=== PATIENT | female | born 1980 | race Caucasian/White ===

== ENCOUNTER 2018-05-28 13:30 | Emergency (ER) | payer BC ==
--- NOTE | 2018-05-28 13:32 | ER Report ---
History and Physical Time Seen By MD: 13:31 HPI/ROS CHIEF COMPLAINT: Fall, headache HISTORY OF PRESENT ILLNESS: Patient is a 37-year-old female here with complaints of headache, status post fall while getting off of the ski lift while snowboarding. Patient was helmeted and reportedly fell backwards striking her head on the ground. Patient reports a mildly cloudy sensorium, decreased short- term memory, headache, fuzzy feeling and likely loss of consciousness. Patient denies neck pain, shortness breath, chest pain, abdominal pain, nausea, vomiting. There are no focal neurological deficits at time of evaluation. REVIEW OF SYSTEMS: Constitutional: No fever, no chills. Eyes: No discharge. ENT: No sore throat. Cardiovascular: No chest pain, no palpitations. Respiratory: No cough, no shortness of breath. Gastrointestinal: No abdominal pain, no vomiting. Genitourinary: No hematuria. Musculoskeletal: No back pain. Skin: No rashes. Neurological: + headache, decreased short term memory, cloudy sensorium, no focal deficits. Allergies: Coded Allergies: Penicillins (Verified Allergy, Mild, RASH, 05/28/18) Sulfa (Sulfonamide Antibiotics) (Verified Allergy, Mild, RASH, 05/28/18) Home Meds Active Scripts Ondansetron 4 Mg Odt (ONDANSETRON 4 MG ODT) 4 Mg Tab.rapdis, 4 MG PO Q12H, #30 TAB Prov:CRUZ RODRIGUEZ DO 05/28/18 Reported Medications [Thyroid Med] No Conflict Check, PO DAILY 05/28/18 Constitutional Physical Exam General Appearance: The patient is alert, has no immediate need for airway protection and no signs of toxicity. No acute distress Eyes: Pupils equal and round no pallor or injection. ENT, Mouth: Mucous membranes are moist. Respiratory: There are no retractions, lungs are clear to auscultation. Cardiovascular: Regular rate and rhythm. Gastrointestinal: Abdomen is soft and non tender, no masses, bowel sounds normal. Neurological: No focal neurological deficits, intact sensorium, Skin: Warm and dry, no rashes. Musculoskeletal: Neck is supple non tender. Extremities are nontender, nonswollen and have full range of motion. DIFFERENTIAL DIAGNOSIS: After history and physical exam differential diagnosis was considered for concussion, contusion, intracranial bleed, skull fracture, neck fracture Medical Decision Making EKG/Imaging Imaging EXAMINATION: CT Head without intravenous contrast CT Cervical spine without intravenous contrast HISTORY: Trauma. TECHNIQUE: Head: Axial images were obtained from the skull base to the vertex without intravenous contrast. Sagittal and coronal reformatted images are also submitted. Cervical spine: Axial images were obtained from the skull base through the upper thoracic spine without IV contrast administration. Coronal and sagittal reformatted images were obtained from the axial source data. One of the following dose optimization techniques was utilized in the performance of this exam: Automated exposure control; adjustment of the mA and/or kV according to the patient's size; or use of an iterative reconstruction technique. Specific details can be referenced in the facility's radiology CT exam operational policy. COMPARISON: None available. FINDINGS: HEAD: Brain volume: Normal. Ventricles: Negative. Acute ischemic changes: None. Hemorrhage: None. Masses / edema: None. Quach-white: Negative. White matter: Negative. Vessels: Negative. Extra-axial: Negative. Calvarium / skull base: Mild right TMJ arthritis. Visualized sinuses / orbits: Negative. CERVICAL SPINE: Alignment: Reversal of the normal lordosis. Mild convex rightward curvature. Cranio-cervical junction: Negative. Vertebral bodies: Negative. Posterior elements: Negative. Hardware: None. Disc Spaces: Negative. Soft tissues: Negative. Visualized upper chest: Negative. IMPRESSION: 1. No acute intracranial abnormality. 2. No acute cervical spine fracture. EXAMINATION: CT Head without intravenous contrast CT Cervical spine without intravenous contrast HISTORY: Trauma. TECHNIQUE: Head: Axial images were obtained from the skull base to the vertex without intravenous contrast. Sagittal and coronal reformatted images are also submitted. Cervical spine: Axial images were obtained from the skull base through the upper thoracic spine without IV contrast administration. Coronal and sagittal reformatted images were obtained from the axial source data. One of the following dose optimization techniques was utilized in the performance of this exam: Automated exposure control; adjustment of the mA and/or kV according to the patient's size; or use of an iterative reconstruction technique. Specific details can be referenced in the facility's radiology CT exam operational policy. COMPARISON: None available. FINDINGS: HEAD: Brain volume: Normal. Ventricles: Negative. Acute ischemic changes: None. Hemorrhage: None. Masses / edema: None. Quach-white: Negative. White matter: Negative. Vessels: Negative. Extra-axial: Negative. Calvarium / skull base: Mild right TMJ arthritis. Visualized sinuses / orbits: Negative. CERVICAL SPINE: Alignment: Reversal of the normal lordosis. Mild convex rightward curvature. Cranio-cervical junction: Negative. Vertebral bodies: Negative. Posterior elements: Negative. Hardware: None. Disc Spaces: Negative. Soft tissues: Negative. Visualized upper chest: Negative. IMPRESSION: 1. No acute intracranial abnormality. 2. No acute cervical spine fracture. ED Course/Re-evaluation ED Course Patient is a 37-year-old female here with complaints of headache, mild cloudy sensorium after a fall while snowboarding today. CT imaging of the head and C- spine were negative for intracranial pathology or fractures. Patient received ibuprofen and Zofran for symptom management. Patient likely has a concussion secondary to trauma at which time she was wearing a helmet. Concussion precautions were provided the patient and she voiced understanding. Patient was discharged in stable condition tolerating by mouth intake Decision to Disposition Date: May 28, 2018 Decision to Disposition Time: 15:30 Depart Departure Latest Vital Signs Impression: Primary Impression: Concussion Condition: Condition Unchanged Disposition: HOME OR SELF-CARE New Scripts Ondansetron 4 Mg Odt (ONDANSETRON 4 MG ODT) 4 Mg Tab.rapdis 4 MG PO Q12H, #30 TAB Prov: CRUZ RODRIGUEZ DO 05/28/18 Patient Instructions: Concussion (ED) Additional Instructions: Please drink plenty of water. You may take 1 tablet of Zofran every 4-6 hours as needed for nausea and vomiting. You may take Tylenol not to exceed 3 g per day, ibuprofen not to exceed 800 mg 4 times a day, naproxen not to exceed 500 mg twice daily as needed for headaches. Please limit exposure to phones, electronic devices, reading, TV as this may hinder your recovery. Please return promptly if you develop weakness in the extremities, numbness, neck pain, worsening headache, blurry vision, difficulty breathing, fevers or chills, inability to keep down food or fluids. Please follow-up with her family doctor in the next 24-48 hours for follow-up evaluation and care. Please avoid any activity that may cause repeat trauma as recurrent trauma can significantly worsen your symptoms or cause . CRUZ RODRIGUEZ DO May 28, 2018 13:32
[2018-05-28] MEDS ORDERED: THYROID MED PO (13:45)
--- NOTE | 2018-05-28 15:11 | RADIOLOGY IMAGING REPORT ---
FACILITY: [facility] PATIENT NAME: Sweetie Rondon : 1980 MR: [id number] V: [id number] EXAM DATE: ORDERING PHYSICIAN: CRUZ RODRIGUEZ TECHNOLOGIST: Location: [facility] - [place] Patient: Sweetie Rondon : 1980 Visit/Account:[id number] Date of Sevice: 05/28/2018 EXAMINATION: CT Head without intravenous contrast CT Cervical spine without intravenous contrast HISTORY: Trauma. TECHNIQUE: Head: Axial images were obtained from the skull base to the vertex without intravenous contrast. Sa gittal and coronal reformatted images are also submitted. Cervical spine: Axial images were obtained from the skull base through the upper thoracic spine with out IV contrast administration. Coronal and sagittal reformatted images were obtained from the axial source data. One of the following dose optimization techniques was utilized in the performance of this exam: Autom ated exposure control; adjustment of the mA and/or kV according to the patient's size; or use of an i terative reconstruction technique. Specific details can be referenced in the facility's radiology C T exam operational policy. COMPARISON: None available. FINDINGS: HEAD: Brain volume: Normal. Ventricles: Negative. Acute ischemic changes: None. Hemorrhage: None. Masses / edema: None. Quach-white: Negative. White matter: Negative. Vessels: Negative. Extra-axial: Negative. Calvarium / skull base: Mild right TMJ arthritis. Visualized sinuses / orbits: Negative. CERVICAL SPINE: Alignment: Reversal of the normal lordosis. Mild convex rightward curvature. Cranio-cervical junction: Negative. Vertebral bodies: Negative. Posterior elements: Negative. Hardware: None. Disc Spaces: Negative. Soft tissues: Negative. Visualized upper chest: Negative. IMPRESSION: 1. No acute intracranial abnormality. 2. No acute cervical spine fracture. Report Dictated By: Blake Vera MD at 05/28/2018 3:00 PM Report E-Signed By: Blake Vera MD at 05/28/2018 3:07 PM WSN:[email or web address]
--- NOTE | 2018-05-28 15:11 | RADIOLOGY IMAGING REPORT ---
FACILITY: [facility] PATIENT NAME: Sweetie Rondon : 1980 MR: [id number] V: [id number] EXAM DATE: ORDERING PHYSICIAN: CRUZ RODRIGUEZ TECHNOLOGIST: Location: [facility] - [place] Patient: Sweetie Rondon : 1980 Visit/Account:[id number] Date of Sevice: 05/28/2018 EXAMINATION: CT Head without intravenous contrast CT Cervical spine without intravenous contrast HISTORY: Trauma. TECHNIQUE: Head: Axial images were obtained from the skull base to the vertex without intravenous contrast. Sa gittal and coronal reformatted images are also submitted. Cervical spine: Axial images were obtained from the skull base through the upper thoracic spine with out IV contrast administration. Coronal and sagittal reformatted images were obtained from the axial source data. One of the following dose optimization techniques was utilized in the performance of this exam: Autom ated exposure control; adjustment of the mA and/or kV according to the patient's size; or use of an i terative reconstruction technique. Specific details can be referenced in the facility's radiology C T exam operational policy. COMPARISON: None available. FINDINGS: HEAD: Brain volume: Normal. Ventricles: Negative. Acute ischemic changes: None. Hemorrhage: None. Masses / edema: None. Quach-white: Negative. White matter: Negative. Vessels: Negative. Extra-axial: Negative. Calvarium / skull base: Mild right TMJ arthritis. Visualized sinuses / orbits: Negative. CERVICAL SPINE: Alignment: Reversal of the normal lordosis. Mild convex rightward curvature. Cranio-cervical junction: Negative. Vertebral bodies: Negative. Posterior elements: Negative. Hardware: None. Disc Spaces: Negative. Soft tissues: Negative. Visualized upper chest: Negative. IMPRESSION: 1. No acute intracranial abnormality. 2. No acute cervical spine fracture. Report Dictated By: Blake Vera MD at 05/28/2018 3:00 PM Report E-Signed By: Blake Vera MD at 05/28/2018 3:07 PM WSN:[id number]
[2018-05-28] MEDS ORDERED: IBUPROFEN 800 MG TAB PO ONE (15:20)
[2018-05-28] MEDS ORDERED: ONDANSETRON 4 MG ODT TABDP SL ONE (15:35)
[2018-05-28] MEDS ORDERED: ONDA4TAB9 PO (15:37)
[2018-05-28 15:45] VITALS: BP 145/95
== END 2018-05-28 15:56 | disposition home or self-care (01) ==
LOC: ER 13:37
DX: S06.0X9A Concussion with loss of consciousness of unspecified duration, initial encounter (principal)
CPT/HCPCS: 70450; 72125; 99284; S0119